=== PATIENT | female | born 2000 | race Caucasian/White ===

== ENCOUNTER 2023-10-22 | Emergency (ER) | payer OTHER ==
[2023-10-22 00:06] VITALS: BMI 27.3
[2023-10-22] MEDS ORDERED: DOXYCYCLINE HYCLATE 100 MG CAPSULE PO ONE ×2 (02:33→02:58)
[2023-10-22] MEDS ORDERED: metroNIDAZOLE 250 MG TABLET PO ONE (02:34)
[2023-10-22] MEDS ORDERED: metroNIDAZOLE 250 MG TABLET ONE (02:58)
[2023-10-22] MEDS ORDERED: cefTRIAXone SODIUM 1 GM VIAL ONE ×2 (02:59→03:16)
[2023-10-22] MEDS ORDERED: LIDOCAINE HCL 2% JELLY 6 ML TP ONE (03:04)
[2023-10-22] MEDS ORDERED: LIDOCAINE HCL 1%, 10 MG/ML (20ML VIAL) ONE (03:16)
[2023-10-22 03:49] LABS: HCG,QUALITATIVE URINE Negative
[2023-10-22 03:54] LABS: EPI CELLS 35 /uL (0-25.1); HYALINE CASTS 3 /uL (0-3.1); PH,URINE 6.5 (5.0-8.0); URINE APPEARANCE CLOUDY; URINE BACTERIA >9,000 /uL (0-1359); URINE BILIRUBIN NEGATIVE (NEGATIVE); URINE COLOR YELLOW; URINE GLUCOSE (UA) NEGATIVE (NEGATIVE); URINE KETONE TRACE (NEGATIVE); URINE LEUK ESTERASE TRACE (NEGATIVE); URINE NITRITE POSITIVE (NEGATIVE); URINE PROTEIN NEGATIVE (NEGATIVE); URINE RBC 44 /uL (0-23.9); URINE WBC 118 /uL (0-25.8)
[2023-10-22 04:45] VITALS: BP 122/74; PULSE 81; RESP 15; TEMP 98.3
== END 2023-10-22 04:54 | disposition home or self-care (01) ==
LOC: JERFT → JER
DX: T19.2XXA Foreign body in vulva and vagina, initial encounter (principal)
CPT/HCPCS: 81003; 84703; 87086; 87186; 99283-25